=== PATIENT | male | born 1970 | race American Indian/Alaskan Native ===

== ENCOUNTER 2017-02-14 10:47 | Emergency (ER) | payer MEDICAID ==
[2017-02-14 11:52] LABS: BASOPHILS 0.2 % (0-2); EOSINOPHILS 0.2 % (0-7); HEMOGLOBIN 14.7 g/dL (13.5-17.5); IMMATURE GRANULOCYTES 0.2 % (0-5); LYMPHOCYTES 20.7 % (15-50); MCH 28.3 pg (26.0-34.0); MCHC 32.7 g/dL (31.0-37.0); MCV 86.7 fL (80.0-100.0); MEAN PLATELET VOLUME 10.1 fL (7.4-10.4); NEUTROPHILS 74.7 % (40-80); PLATELET COUNT 184 10x3/uL (130-400); RBC 5.19 10x6/uL (4.20-6.10); RDW 13.7 % (11.5-14.5); WBC 5.8 10x3/uL (4.8-10.8)
[2017-02-14 12:02] LABS: APPEARANCE CLEAR (CLEAR); BILIRUBIN NEGATIVE (NEGATIVE); COLOR YELLOW (YELLOW); GLUCOSE 1000 mg/dL (NEGATIVE); KETONE MODERATE mg/dL (NEGATIVE); LEUKOCYTE ESTERASE NEGATIVE (NEGATIVE); NITRITE NEGATIVE (NEGATIVE); PROTEIN 2+ mg/dL (NEGATIVE); SPECIFIC GRAVITY 1.015 (1.005-1.020); UROBILINOGEN NORMAL (NORMAL)
[2017-02-14 12:13] LABS: ALBUMIN 3.7 g/dL (3.4-5.0); ALKALINE PHOSPHATASE 92 U/L (46-116); ALT (SGPT) 62 U/L (10-68); AMYLASE - SERUM 77 U/L (25-115); BILIRUBIN - TOTAL 0.58 mg/dL (0.2-1.3); CALC OSMOLALITY 280 mosm/kg (275-300); CALCIUM 9.1 mg/dL (8.5-10.1); CARBON DIOXIDE 26.4 mmol/L (21.0-32.0); CHLORIDE - SERUM 102 mmol/L (98-107); CREATININE - SERUM 0.7 mg/dL (0.6-1.3); GLUCOSE 230 mg/dL (74-106); LIPASE 745 U/L (73-393); POTASSIUM - SERUM 4.1 mmol/L (3.5-5.1); PROTEIN - SERUM 9.1 g/dL (6.4-8.2); SODIUM 138 mmol/L (136-145); UREA NITROGEN 7 mg/dL (7-18); eGFR NON AFRICAN AMERICAN > 90 mL/min (90-120)
== END 2017-02-14 17:44 | disposition home or self-care (01) ==
LOC: D.ER 10:47
PROVIDERS: Emergency Medicine Emergency Medical Services
DX: H83.09 Labyrinthitis, unspecified ear (principal); R11.2 Nausea with vomiting, unspecified; K86.1 Other chronic pancreatitis; E11.9 Type 2 diabetes mellitus without complications; Z79.4 Long term (current) use of insulin; B20 Human immunodeficiency virus [HIV] disease

== ENCOUNTER → 2017-04-26 09:04 | Outpatient (CLI) | payer MEDICAID ==
[2017-04-26 10:15] LABS: BILIRUBIN - DIRECT 0.13 mg/dL (0.00-0.30); BILIRUBIN - INDIRECT 0.37 mg/dL (0.00-1.00); BILIRUBIN - TOTAL 0.5 mg/dL (0.2-1.3); PROTEIN - SERUM 8.4 g/dL (6.4-8.2)
== END | disposition home or self-care (01) ==
LOC: D.US 09:04
PROVIDERS: Internal Medicine Gastroenterology
DX: K76.0 Fatty (change of) liver, not elsewhere classified (principal)